=== PATIENT | male | born 1990 | race Caucasian/White ===

== ENCOUNTER 2016-12-02 07:11 | Emergency (ER) | payer OTHER ==
[~2016-12-02] VITALS: Ht 182.9 cm; Wt 115.9 kg
[2016-12-02] MEDS ORDERED: SODIUM CHLORIDE 0.9% 1,000 ML IV ONE (07:33)
[2016-12-02] MEDS ORDERED: SODIUM CHLORIDE 0.9% 1,000ML IVBOLUS ONE (08:00)
[2016-12-02] MEDS ORDERED: ONDANSETRON 2MG/ML, 2ML IVPush ONE (08:00)
[2016-12-02 08:03] LABS: HEMATOCRIT 48.4 % (39.2-51.8); HEMOGLOBIN 16.6 g/dL (13.7-18.0); WHITE BLOOD COUNT 8.1 x10^3/uL (3.4-10)
[2016-12-02 08:05] LABS: ASPARTATE AMINO TRANSFERASE 28 U/L (15-37); BLOOD UREA NITROGEN 12 mg/dL (7-18)
[2016-12-02] MEDS ORDERED: ONDANSETRON 2MG/ML, 2ML ONE (08:15)
[2016-12-02 08:19] VITALS: BP 146/92
[2016-12-02] MEDS ORDERED: GADOBUTROL 10 MMOL/10 ML PFS ONE (10:24)
== END 2016-12-02 10:59 | disposition home or self-care (01) ==
LOC: ED 09:44
DX: R42 Dizziness and giddiness (principal); F12.10 Cannabis abuse, uncomplicated
CPT/HCPCS: 36415; 70450; 70553; 80053; 81003; 83690; 85025; 86677; 93005; 96361; 96374; 99285; A9585; J2405; J7030

== ENCOUNTER → 2017-03-16 | Outpatient (CLI) | payer OTHER ==
[~2017-03-16] MED LIST: OMNIPAQUE 350 MG/ML, 100ML BOTTLE ONE
== END | disposition home or self-care (01) ==
LOC: CFH 14:34
PROVIDERS: ATTEND Specialist
DX: R55 Syncope and collapse (principal); M54.81 Occipital neuralgia; G93.0 Cerebral cysts; D89.89 Other specified disorders involving the immune mechanism, not elsewhere classified
CPT/HCPCS: 70496; 70498; 82565; Q9967